=== PATIENT | male | born 1940 | race Caucasian/White ===

== ENCOUNTER 2024-01-07 19:35 | Inpatient (IN) | payer MEDICARE, BC ==
[~2024-01-07] VITALS: Ht 180.3 cm; Wt 84.1 kg
[2024-01-07 20:20] LABS: BASOPHILS % (AUTO) 0.3 % (0-1); EOSINOPHILS # (AUTO) 0.2 X10'3 (0-0.9); EOSINOPHILS % (AUTO) 1.6 % (0-6); HEMATOCRIT 42.8 % (42.0-52.0); HEMOGLOBIN 13.9 g/dl (14.0-17.9); LYMPHOCYTES # (AUTO) 2.1 X10'3 (1.1-4.8); LYMPHOCYTES % (AUTO) 20.4 % (21-51); MEAN CORPUSCULAR HEMOGLOBIN 28.6 PG (27.0-31.0); MEAN CORPUSCULAR HGB CONC 32.4 g/dL (33.0-36.5); MEAN CORPUSCULAR VOLUME 88.2 FL (78-98); MEAN PLATELET VOLUME 8.7 FL (7.4-10.4); MONOCYTES # (AUTO) 1.1 X10'3 (0-0.9); MONOCYTES % (AUTO) 10.8 % (2-12); NEUTROPHILS % (AUTO) 66.9 % (42-75); PLATELET COUNT 204 X10'3 (140-440); RED BLOOD COUNT 4.86 X10'6 (4.70-6.10); RED CELL DISTRIBUTION WIDTH 16.7 % (11.5-14.5); WHITE BLOOD COUNT 10.4 X10'3 (4.5-11.0)
[2024-01-07 20:32] LABS: ALANINE AMINOTRANSFERASE 33 U/L (12-78); ALBUMIN 3.5 G/DL (3.4-5.0); ALBUMIN/GLOBULIN RATIO 0.9 (1.1-1.5); ALKALINE PHOSPHATASE 43 IU/L (46-116); ANION GAP 12 (8-16); ASPARTATE AMINO TRANSFERASE 120 U/L (10-37); BILIRUBIN,TOTAL 0.7 MG/DL (0.1-1.0); BLOOD UREA NITROGEN 31 MG/DL (7-18); BUN/CREATININE RATIO 19.6 (10.0-20.0); CHLORIDE 106 MMOL/L (99-107); CREATININE 1.58 MG/DL (0.60-1.10); GLUCOSE 102 MG/DL (70-104); POTASSIUM 3.7 MMOL/L (3.5-5.1); SODIUM 141 MMOL/L (135-145); TOTAL CARBON DIOXIDE 23.4 MMOL/L (24-32); TOTAL PROTEIN 7.2 G/DL (6.4-8.2); eCRCL 39 ML/MIN; eGFR 42 ML/MIN
[2024-01-07] MEDS ORDERED: heparin 10,000 units/1 ML INJ IV ONE (21:10)
[2024-01-07] MEDS: heparin 10,000 units/1 ML INJ IV ONE (21:23)
[2024-01-07] MEDS ORDERED: magnesium Cl slow-release 64mg tablet PO PRN (21:30)
[2024-01-07] MEDS ORDERED: magnesium hydroxide 30ml (MOM) UD suspension PO PRN (21:30)
[2024-01-07] MEDS ORDERED: magnesium sulf-water 2g/50mL 50 ML IV PRN (21:30)
[2024-01-07] MEDS ORDERED: ondansetron/PF 4mg/2ml inj IV PRN (21:30)
[2024-01-07] MEDS ORDERED: magnesium sulf-water 4G/100mL 100 ML IV PRN (21:30)
[2024-01-07] MEDS ORDERED: nitroGLYCERIN 0.4mg SUBLingual tab SL PRN (21:30)
[2024-01-07] MEDS ORDERED: potassium Cl 20 mEq SR tablet PO PRN ×2 (21:30)
[2024-01-07] MEDS ORDERED: acetaminophen 325mg tablet PO PRN (21:30)
[2024-01-07] MEDS ORDERED: potassium Cl 40MEQ/1/2NS 520ml 520 ML IV PRN (21:30)
[2024-01-07 21:38] LABS: INR 1.1 INR
[2024-01-07] MEDS: heparin 25,000 UNIT/250ml bag 250 ML IV PRN (21:38)
[2024-01-07] MEDS: nitroGLYCERIN 1gm ointment UD TP ONE (21:39)
[2024-01-07] MEDS: atorvastatin 20mg tablet PO ONE (22:07)
[2024-01-07] MEDS: metoprolol tartrate 50mg tablet PO ONE (22:07)
[2024-01-07] MEDS: MESSAGE TO NURSING IV ONE (23:18)
[2024-01-08] VITALS (9 sets, daily range): BP systolic 89–144; BP diastolic 49–108; PULSE 60–83; RESP 16–21; TEMP 97.3–98.5; O2SAT 91–97
[2024-01-08] MEDS: heparin 10,000 units/1 ML INJ IV PRN (01:17)
[2024-01-08] MEDS: MESSAGE TO NURSING IV ONE ×3 (02:51→15:10)
[2024-01-08] MEDS ORDERED: ATOR-2 PO (03:53)
[2024-01-08 03:54] LABS: BASOPHILS % (AUTO) 0.4 % (0-1); EOSINOPHILS # (AUTO) 0.1 X10'3 (0-0.9); EOSINOPHILS % (AUTO) 0.8 % (0-6); HEMATOCRIT 39.2 % (42.0-52.0); HEMOGLOBIN 12.8 g/dl (14.0-17.9); LYMPHOCYTES # (AUTO) 1.8 X10'3 (1.1-4.8); LYMPHOCYTES % (AUTO) 19.7 % (21-51); MEAN CORPUSCULAR HEMOGLOBIN 28.7 PG (27.0-31.0); MEAN CORPUSCULAR HGB CONC 32.7 g/dL (33.0-36.5); MEAN CORPUSCULAR VOLUME 87.6 FL (78-98); MEAN PLATELET VOLUME 8.9 FL (7.4-10.4); MONOCYTES % (AUTO) 11.4 % (2-12); NEUTROPHILS # (AUTO) 6.2 X10'3 (1.8-7.7); NEUTROPHILS % (AUTO) 67.7 % (42-75); PLATELET COUNT 187 X10'3 (140-440); RED BLOOD COUNT 4.48 X10'6 (4.70-6.10); RED CELL DISTRIBUTION WIDTH 16.5 % (11.5-14.5); WHITE BLOOD COUNT 9.2 X10'3 (4.5-11.0)
[2024-01-08] MEDS ORDERED: METO-539 PO (03:54)
[2024-01-08 04:04] LABS: HEMOGLOBIN A1C 5.7 % (4.5-6.2)
[2024-01-08 04:10] LABS: ALBUMIN 3.1 G/DL (3.4-5.0); ANION GAP 10 (8-16); BLOOD UREA NITROGEN 28 MG/DL (7-18); BUN/CREATININE RATIO 18.1 (10.0-20.0); CALCIUM 8.7 MG/DL (8.5-10.1); CHLORIDE 103 MMOL/L (99-107); CHOL/HDL RATIO 2.5 (0.00-4.99); CHOLESTEROL 142 MG/DL (0-200); CREATININE 1.55 MG/DL (0.60-1.10); GLUCOSE 212 MG/DL (70-104); HDL CHOLESTEROL 56 MG/DL (35-60); LDL CHOLESTEROL 80 MG/DL (50-100); MAGNESIUM 1.9 MG/DL (1.5-2.4); POTASSIUM 3.7 MMOL/L (3.5-5.1); SODIUM 137 MMOL/L (135-145); TOTAL CARBON DIOXIDE 24.1 MMOL/L (24-32); TRIGLYCERIDES 34 MG/DL (20-135); eCRCL 40 ML/MIN; eGFR 43 ML/MIN
[2024-01-08] MEDS: K and/or MAG REPLACEMENT MC SCH (08:00)
[2024-01-08] MEDS: docusate sod 100mg capsule PO SCH (08:00)
[2024-01-08] MEDS ORDERED: pneumococcal 23-VAL P-sac vacc 25 mcg/0.5ml vial IMVAC ONE (10:00)
[2024-01-08] MEDS ORDERED: FLU VACC TS2024-25(6MOS UP)/PF 45 MCG/0.5 ML SYRINGE IMVAC ONE (10:00)
[2024-01-08] MEDS: aspirin 81mg tab.chew PO SCH (11:26)
[2024-01-08] MEDS: lisinopril 10 MG tablet PO SCH (11:26)
[2024-01-08] MEDS: atorvastatin 20mg tablet PO SCH (11:26)
[2024-01-08] MEDS: metoprolol succinate 25mg (24-HOUR) SR. Tablet PO SCH (11:26)
[2024-01-08] MEDS: normal saline 1000ml 1,000 ML IV SCH (14:50)
[2024-01-08] MEDS ORDERED: LIDOcaine 1% (10mg/ml) 2ml vial ONE (15:59)
[2024-01-08] MEDS ORDERED: midazolam 1 mg/ML 2ml injection ONE ×2 (15:59→16:25)
[2024-01-08] MEDS ORDERED: verapamil 2.5 mg/ml inj IV ONE (15:59)
[2024-01-08] MEDS ORDERED: heparin 1,000unit/ml 10ml vial 10 ML ONE (16:00)
[2024-01-08] MEDS ORDERED: fentaNYL/PF 50MCG/1 ML 2ML syringe ONE (16:00)
[2024-01-08] MEDS ORDERED: iohexol 350MG/ML 100ml bottle IV ONE ×2 (16:00→16:29)
[2024-01-08] MEDS ORDERED: nitroGLYCERIN 500mcg/5mL D5W 5 ML IV ONE (16:01)
[2024-01-08] MEDS ORDERED: HYDROcodone/acetaminophen 10/325mg tab PO PRN (18:50)
[2024-01-08] MEDS ORDERED: ondansetron/PF 4mg/2ml inj IV PRN (18:50)
[2024-01-08] MEDS ORDERED: OXAZEpam 15mg capsule PO PRN (18:50)
[2024-01-08] MEDS ORDERED: HYDROcodone/acetaminophen 5mg/325mg tablet PO PRN (18:50)
[2024-01-08] MEDS ORDERED: proCHLORperazine 10 MG/2 ml inj IV PRN (18:50)
[2024-01-09 02:00] VITALS: BP 96/64; PULSE 60; RESP 19; TEMP 97.4; O2SAT 92
[2024-01-09 05:59] LABS: ALBUMIN 2.9 G/DL (3.4-5.0); ANION GAP 8 (8-16); BLOOD UREA NITROGEN 36 MG/DL (7-18); BUN/CREATININE RATIO 18.6 (10.0-20.0); CALCIUM 8.7 MG/DL (8.5-10.1); CHLORIDE 109 MMOL/L (99-107); CREATININE 1.94 MG/DL (0.60-1.10); GLUCOSE 101 MG/DL (70-104); POTASSIUM 3.6 MMOL/L (3.5-5.1); SODIUM 140 MMOL/L (135-145); TOTAL CARBON DIOXIDE 23.1 MMOL/L (24-32); eCRCL 32 ML/MIN; eGFR 33 ML/MIN
[2024-01-09 06:06] LABS: BASOPHILS % (AUTO) 0.5 % (0-1); EOSINOPHILS # (AUTO) 0.2 X10'3 (0-0.9); EOSINOPHILS % (AUTO) 2.6 % (0-6); HEMATOCRIT 40.4 % (42.0-52.0); HEMOGLOBIN 13.2 g/dl (14.0-17.9); LYMPHOCYTES # (AUTO) 2.1 X10'3 (1.1-4.8); LYMPHOCYTES % (AUTO) 24.5 % (21-51); MEAN CORPUSCULAR HEMOGLOBIN 28.8 PG (27.0-31.0); MEAN CORPUSCULAR HGB CONC 32.8 g/dL (33.0-36.5); MEAN CORPUSCULAR VOLUME 87.8 FL (78-98); MEAN PLATELET VOLUME 9.1 FL (7.4-10.4); NEUTROPHILS # (AUTO) 5.2 X10'3 (1.8-7.7); NEUTROPHILS % (AUTO) 60.4 % (42-75); PLATELET COUNT 194 X10'3 (140-440); WHITE BLOOD COUNT 8.7 X10'3 (4.5-11.0)
[2024-01-09 08:00] VITALS: RESP 22; O2SAT 92
[2024-01-09] MEDS ORDERED: spironolactone 25 MG tablet PO SCH (08:30)
[2024-01-09 08:45] VITALS: BP_SYST 140; PULSE 85
[2024-01-09] MEDS: ezetimibe 10mg tablet PO SCH (08:46)
[2024-01-09 10:11] LABS: PRO BRAIN NATRIURETIC PEPTIDE 9214 PG/ML (0-450)
[2024-01-09] MEDS ORDERED: ATOR20TA66 PO (11:05)
[2024-01-09] MEDS ORDERED: LISI10TA27 PO (11:05)
[2024-01-09] MEDS ORDERED: EZET10TA48 PO (11:05)
[2024-01-09] MEDS ORDERED: ASPI81TA53 PO (11:05)
[2024-01-09] MEDS ORDERED: METO-539 PO (11:10)
[2024-01-09] MEDS ORDERED: NITR0.4T51 SL (11:11)
== END 2024-01-09 15:09 | disposition home or self-care (01) | DRG 280 ==
LOC: ER 19:36 → ED HOLD 21:39 → PCU 3S 01-08 00:43
PROVIDERS: ADMIT Internal Medicine Critical Care Medicine; ATTEND Internal Medicine
PROC: 4A023N7 Measurement of Cardiac Sampling and Pressure, Left Heart, Percutaneous Approach (ICD-10-PCS; principal; 2024-01-08)
PROC: B2111ZZ Fluoroscopy of Multiple Coronary Arteries using Low Osmolar Contrast (ICD-10-PCS; 2024-01-08)
PROC: B2151ZZ Fluoroscopy of Left Heart using Low Osmolar Contrast (ICD-10-PCS; 2024-01-08)
DX: I21.4 Non-ST elevation (NSTEMI) myocardial infarction (principal); N17.0 Acute kidney failure with tubular necrosis; I13.0 Hypertensive heart and chronic kidney disease with heart failure and stage 1 through stage 4 chronic kidney disease, or unspecified chronic kidney disease; I50.22 Chronic systolic (congestive) heart failure; N40.0 Benign prostatic hyperplasia without lower urinary tract symptoms; N18.32 Chronic kidney disease, stage 3b; E78.5 Hyperlipidemia, unspecified; I25.10 Atherosclerotic heart disease of native coronary artery without angina pectoris
CPT/HCPCS: 36415; 71045; 80048; 80053; 80061; 83036; 83735; 83880; 84484; 85025; 85610; 85730; 87081; 90686; 90732; 93005; 93306; 93458; 96365; 97116; 97161; 97530; 99152; 99291; C1894; G0378; J1644; J2250; J3010; J3490; J7030; J7070; Q9967